=== PATIENT | female | born 1980 | race Caucasian/White ===

== ENCOUNTER 2017-05-01 05:27 | Inpatient (IN) | payer OTHER ==
[2017-05-01 06:24] LABS: ROM Internal QC QC Line Present
[2017-05-01] MEDS ORDERED: Penicillin G Potassium IV* 5,000,000 UNITS in NS 0.9% 100 ML* 100 ML IVPB ONE ×2 (06:42→12:00)
[2017-05-01 08:18] LABS: Hematocrit 31 % (35-47); Hemoglobin 10.7 g/dl (12.0-16.0); Mean Corpuscular HGB Conc 34 g/dl (31-36); Mean Corpuscular Hemoglobin 30 pg (27-31); Mean Corpuscular Volume 88 fL (80-97); Mean Platelet Volume 8 um3 (7.4-10.4); Red Blood Count 3.56 10^6/ul (4.0-5.4); Red Cell Distribution Width 14 % (10.5-15); White Blood Count 12.5 10^3/ul (3.5-10.8)
[2017-05-01] MEDS ORDERED: Oxytocin in LR* 20 UNITS/1,000 ML BAG IVPB SCH (11:00)
[2017-05-01] MEDS ORDERED: Lidocaine 1% MPF* 2 ML VIAL ONE (14:30)
[2017-05-01] MEDS: Penicillin G Potassium IV* 2,500,000 UNITS in NS 0.9% 100 ML* 100 ML IVPB SCH ×2 (16:05→21:04)
[2017-05-02] MEDS ORDERED: Ibuprofen TAB* 600 MG ONE ×2 (01:03→07:42)
[2017-05-02] MEDS ORDERED: Witch Hazel PAD* JAR TOPICAL PRN (01:07)
[2017-05-02] MEDS ORDERED: Ibuprofen TAB* 600 MG PO PRN (01:07)
[2017-05-02] MEDS ORDERED: Dibucaine 1% 28.35 GM TUBE PR PRN (01:07)
[2017-05-02] MEDS ORDERED: Glycerin ADULT SUPP PR PRN (01:07)
[2017-05-02] MEDS ORDERED: Acetaminophen TAB* 325 MG PO PRN (01:07)
[2017-05-02] MEDS: Penicillin G Potassium IV* 2,500,000 UNITS in NS 0.9% 100 ML* 100 ML IVPB SCH (01:28)
[2017-05-02] MEDS ORDERED: Oxytocin in LR* 20 UNITS/1,000 ML BAG IVPB SCH (02:00)
[2017-05-02] MEDS: Docusate CAP* 100 MG PO SCH ×3 (07:47→21:04)
[2017-05-02] MEDS ORDERED: Simethicone TAB* 80 MG TAB.CHEW PO SCH (08:30)
[2017-05-02] MEDS ORDERED: Influenza VAC *QUAD* 2017-18* 0.5 ML SYRINGE IM ONE (09:00)
[2017-05-02] MEDS ORDERED: Tetan/Diph/Pertus SYR(Tdap)* 0.5 ML SYR(BOOSTRIX) use SYR IM ONE (09:00)
[2017-05-02] MEDS: Ibuprofen TAB* 600 MG PO PRN ×2 (13:39→20:30)
[2017-05-03] MEDS: Ibuprofen TAB* 600 MG PO PRN ×4 (03:11→21:34)
[2017-05-03 08:00] LABS: Hematocrit 24 % (35-47); Hemoglobin 8.2 g/dl (12.0-16.0); Mean Corpuscular HGB Conc 34 g/dl (31-36); Mean Corpuscular Hemoglobin 30 pg (27-31); Mean Corpuscular Volume 89 fL (80-97); Mean Platelet Volume 8 um3 (7.4-10.4); Red Blood Count 2.74 10^6/ul (4.0-5.4); Red Cell Distribution Width 14 % (10.5-15); White Blood Count 14.9 10^3/ul (3.5-10.8)
[2017-05-03] MEDS: Ferrous Gluconate TAB* 324 MG TAB PO SCH ×2 (09:10→20:11)
[2017-05-03] MEDS: Docusate CAP* 100 MG PO SCH ×3 (12:22→20:11)
[2017-05-04] MEDS: Ibuprofen TAB* 600 MG PO PRN (07:33)
[2017-05-04 08:21] VITALS: BP 122/79
[2017-05-04] MEDS: Docusate CAP* 100 MG PO SCH (09:07)
[2017-05-04] MEDS: Ferrous Gluconate TAB* 324 MG TAB PO SCH (09:08)
[2017-05-04] MEDS ORDERED: Tetan/Diph/Pertus SYR(Tdap)* 0.5 ML SYR(BOOSTRIX) use SYR IM ONE (11:00)
== END 2017-05-04 11:50 | disposition home or self-care (01) | DRG 560 ==
LOC: MCHOBOUT 05:27 → MCHOB 06:38
PROVIDERS: ADMIT Midwife; ATTEND Midwife
PROC: 4A1HX4Z Monitoring of Products of Conception, Cardiac Electrical Activity, External Approach (ICD-10-PCS; principal; 2017-05-02)
PROC: 10E0XZZ Delivery of Products of Conception, External Approach (ICD-10-PCS; 2017-05-02)
PROC: 0KQM0ZZ Repair Perineum Muscle, Open Approach (ICD-10-PCS; 2017-05-02)
DX: O42.02 Full-term premature rupture of membranes, onset of labor within 24 hours of rupture (principal); O70.1 Second degree perineal laceration during delivery; O99.824 Streptococcus B carrier state complicating childbirth; O90.81 Anemia of the puerperium; Z3A.39 39 weeks gestation of pregnancy; Z37.0 Single live birth
CPT/HCPCS: 36415; 84112; 85025; 86850; 86900; 86901; 90715; A9270-GY; J2540